=== PATIENT | female | born 1995 | race Caucasian/White ===

== ENCOUNTER 2018-02-04 11:03 | Emergency (ER) | payer MEDICAID, SELFPAY ==
[2018-02-04 11:04] VITALS: BP 141/93; PULSE 78; RESP 16; TEMP 36.5; O2SAT 97; BMI 32.5
--- NOTE | 2018-02-04 11:51 | ED.DCSUM_ITS ---
- ER Visit Summary Date of Service: 02/04/18 Chief Complaint: Continued facial pain and swelling on the left side History of Present Illness: The patient is a 22 F status post extraction of her upper left molars presents with swelling over the left maxillary sinus. She denies any URI symptoms. She denies nasal congestion, rhinorrhea or postnasal drainage. She denies any double vision, blurred vision loss of vision. Denies eye pain. She denies pain with movement of her eye. She denies fever, chills night sweats. She denies photophobia, neck pain or neck stiffness. There is no history of trauma. She apparently is unable to see her PCP or dentist. She was placed on cephalexin. Physical Examination: There is swelling over the left maxillary region. There is no evidence of facial cellulitis. There is a small pocket near the buccal gum junction in the proximity of where the second/third left upper molar would have been. There is no inflammation of the gingiva. There is no angioedema. There is no trismus. Trachea is midline. There is no stridor. Heart is regular without murmur, gallop or rub. S1 and S2 are normal. Lungs are clear to auscultation with good movement of air bilaterally. Test Results: Patient needs outpatient dental films, which are not available at [facility]. Emergency Department Course and Treatment: Patient's prescription was changed from cephalexin to clindamycin for anaerobic coverage. Treatment Plan: Discontinue cephalexin start clindamycin and follow-up with dentist Disposition: Discharged home Impression: facial pain and swelling suspect secondary to dental infection This note was generated with Gnammo dictation software. It may contain incorrect words, spelling, and punctuation that were not noted in review of the chart prior to signing ED Disposition - Plan for ED Patient: Chief Complaint: Other, Pain/Inj Instructions: ED Abscess Dental Prescriptions: Clindamycin HCl [Cleocin] 300 mg PO Q6H #28 cap Referrals: Richard Banuelos MD [Primary Care Provider] - Additional Instructions: You need to follow-up with your dentist. Your prescription was electronically sent to [facility] pharmacy your preferred pharmacy.
== END 2018-02-04 11:57 | disposition home or self-care (01) ==
LOC: ED 11:47
PROVIDERS: Emergency Provider Emergency Medicine; Family Provider Internal Medicine; PCP Internal Medicine
DX: R51 Headache (principal); R22.0 Localized swelling, mass and lump, head; Z98.818 Other dental procedure status; Z72.0 Tobacco use
CPT/HCPCS: 99282

== ENCOUNTER 2018-04-23 13:30 | Emergency (ER) | payer MEDICAID, SELFPAY ==
[2018-04-23 13:31] VITALS: BP 139/86; PULSE 89; RESP 18; TEMP 36.6; O2SAT 98; BMI 32.9
[2018-04-23] MEDS: DiphenhydrAMINE 50 MG/ML Syringe 25 MG IV (14:40)
[2018-04-23] MEDS: Ketorolac 30 MG/ML Syringe IV (14:40)
[2018-04-23] MEDS: Metoclopramide 10 MG/2 ML Vial IV (14:40)
[2018-04-23 15:16] LABS: Pregnancy, Serum, hCG Quali. NEGATIVE Negative (0-9 Nonpreg)
[2018-04-23 15:33] VITALS: RESP 14
--- NOTE | 2018-04-23 15:44 | ED.DCSUM_ITS ---
- ER Visit Summary Date of Service: 04/23/18 Chief Complaint: Bilateral headache, nausea, photophobia, fatigue and low back pain History of Present Illness: The patient is a 23 F who presents with bifrontal headache for the past couple of days. There is associated with photophobia and nausea. She also when generalized fatigue. Her last menses was not normal. She did miss 1 of her control pills and has varied the time of administration because she has been on vacation. She denies being bit by any insects or mosquitoes etc. She denies rash. She denies fever or chills. She denies double vision, blurred vision loss of vision. Denies trouble with her hearing. She denies rhinorrhea, congestion, postnasal drainage or sore throat. She denies chest pain or palpitations. She denies cough shortness of breath or difficulty breathing. She does report nausea without vomiting or diarrhea. She denies any myalgias arthralgias. Past medical history is unremarkable Physical Examination: Blood pressure slightly elevated 139/86. There is no frontal, ethmoid or maxillary sinus tenderness to percussion. Pupils equal round reactive paradoxic muscle intact. Funduscopic exam was no papilledema. TMs normal. Nares patent with no discharge. Posterior pharynx without erythema or exudate. Uvula is midline. Neck is supple. Heart is regular without murmur, gallop or rub. S1 and S2 are normal. Lungs are clear to auscultation with good movement of air bilaterally. Abdomen is soft nontender. Patient is alert and oriented ?3. Motor is 5 over 5. Sensory is intact. DTRs are symmetric with no clonus or Babinski sign. Cranial 2 through 12 are intact. Cerebellar testing is normal. Test Results: Serum test negative Emergency Department Course and Treatment: Patient was treated with 25 mg of Benadryl, 30 mm Toradol and 10 mg of Reglan. She was reassessed at 1532. She was asleep. She was awakened. Her headache is resolved. He was informed of her test results. Treatment Plan: Appropriate home-going instructions Disposition: Discharged home Impression: 1. Bifrontal headache suspect vascular 2. Abnormal menses 3. Generalized fatigue This note was generated with [employer] software. It may contain incorrect words, spelling, and punctuation that were not noted in review of the chart prior to signing ED Disposition - Plan for ED Patient: Disposition: Home or Assisted Living Chief Complaint: General Illness Instructions: ED Cephalgia Unspecified, ED Weakness UKO Referrals: Richard Banuelos MD [Primary Care Provider] - As Needed
[2018-04-23 16:06] VITALS: BP 114/61; PULSE 75; RESP 12; O2SAT 95
== END 2018-04-23 16:07 | disposition home or self-care (01) ==
PROVIDERS: Emergency Provider Emergency Medicine; Family Provider Internal Medicine; PCP Internal Medicine
DX: R51 Headache (principal); N93.9 Abnormal uterine and vaginal bleeding, unspecified; R53.83 Other fatigue; H53.149 Visual discomfort, unspecified; R11.0 Nausea; M54.5 Low back pain; E66.9 Obesity, unspecified; Z79.3 Long term (current) use of hormonal contraceptives
CPT/HCPCS: 84703; 96374; 96375; 99283; J7030

== ENCOUNTER 2019-01-15 19:45 | Emergency (ER) | payer MEDICAID, SELFPAY ==
[2019-01-15 19:46] VITALS: BP 129/70; PULSE 74; RESP 16; TEMP 36.2; O2SAT 96; BMI 35.2
[2019-01-15 21:06] LABS: Mucous, Urine 0 SEEN /hpf (<or=2+); Red Blood Cells-Urine 0 SEEN /hpf (0-5); White Blood Cells 0 SEEN /hpf (0-5)
[2019-01-15 21:10] LABS: Color, Urine Yellow (Yellow); Glucose, Dipstick Normal (Normal); Ketone-Dipstick Negative (Negative); Leukocyte Esterase-Dipstick 25 /ul (Negative); Nitrite-Dipstick Negative (Negative); Occult Blood-Urine Negative /ul (Negative); Protein-Dipstick Negative (Negative); Specific Gravity, Urine 1.015 (1.002-1.030); Urine Bilirubin Dipstick Negative (Negative); Urine Clarity Sl. Cloudy (Clear); Urine Urobilinogen Normal (Normal)
[2019-01-15 21:22] LABS: Amorphous Sediment 2+; Bacteria 1+ /hpf (None Seen); Squamous Epithelial Cells - UA 0-5 SEEN /hpf (5-10)
--- NOTE | 2019-01-15 21:22 | ED.VISSUMM ---
- ER Visit Summary Date of Service: 01/15/19 Chief Complaint: Back pain dysuria History of Present Illness: The patient is a 23 F presents with back pain and some dysuria for 2-3 days. No fever or chills no nausea or vomiting she is at 21 weeks. She feels movement and that has not changed. She has no vaginal discharge. No vaginal bleeding. Physical Examination: She appears well in no significant distress, she is got clear lungs bilaterally abdomen is soft gravid without any tenderness. She has some lumbar pain, no significant CVA tenderness. She appears well nontoxic and otherwise normal exam. Emergency Department Course and Treatment: Patient is found to have a urinary tract infection and I will treat her appropriately urine was cultured. Discharge stable condition Impression: [Urinary tract infection] This note was generated with Inf[employer]ami dictation software. It may contain incorrect words, spelling, and punctuation that were not noted in review of the chart prior to signing ED Disposition - Plan for ED Patient: Disposition: Home or Assisted Living Instructions: ED UTI Cystitis Female Prescriptions: Cephalexin [Keflex] 500 mg PO 4X/DAY #40 cap Referrals: Richard Banuelos MD [Primary Care Provider] - 3-5 Days
--- NOTE | 2019-01-15 21:25 | ED.DCSUM_ITS ---
- ER Visit Summary Date of Service: 01/15/19 Chief Complaint: Back pain dysuria History of Present Illness: The patient is a 23 F presents with back pain and some dysuria for 2-3 days. No fever or chills no nausea or vomiting she is at 21 weeks. She feels movement and that has not changed. She has no vaginal discharge. No vaginal bleeding. Physical Examination: She appears well in no significant distress, she is got clear lungs bilaterally abdomen is soft gravid without any tenderness. She has some lumbar pain, no significant CVA tenderness. She appears well nontoxic and otherwise normal exam. Emergency Department Course and Treatment: Patient is found to have a urinary tract infection and I will treat her appropriately urine was cultured. Discharge stable condition Impression: [Urinary tract infection] This note was generated with [employer] dictation software. It may contain incorrect words, spelling, and punctuation that were not noted in review of the chart p rior to signing ED Disposition - Plan for ED Patient: Disposition: Home or Assisted Living Instructions: ED UTI Cystitis Female Prescriptions: Cephalexin [Keflex] 500 mg PO 4X/DAY #40 cap Referrals: Richard Banuelos MD [Primary Care Provider] - 3-5 Days
[2019-01-15] MEDS: Cephalexin 250 MG Capsule 500 MG PO (21:30)
[2019-01-15 21:31] VITALS: BP 128/79; PULSE 83; RESP 16; O2SAT 99
== END 2019-01-15 21:31 | disposition home or self-care (01) ==
PROVIDERS: Emergency Provider Emergency Medicine; Family Provider Internal Medicine; PCP Internal Medicine
DX: O23.42 Unspecified infection of urinary tract in pregnancy, second trimester (principal); Z3A.21 21 weeks gestation of pregnancy
CPT/HCPCS: 81001; 87086; 87088; 99283

== ENCOUNTER → 2019-02-17 | Outpatient (CLI) | payer MEDICAID, SELFPAY ==
[2019-02-11 14:40] VITALS: BMI 34.7
[2019-02-17 11:42] LABS: Hematocrit 36.5 % (37-47); Hemoglobin 12.4 g/dl (12.0-15.0); Mean Corpuscular Hgb 29.4 pg (27.0-32.0); Mean Corpuscular Volume 86.5 fL (81-99); Mean Platelet Vol. 11.5 fl (6.2-12.0); Platelet Count 201 K/mm3 (150-450); RBC Distribution Width CV 12.8 % (11.6-14.6); RBC Distribution Width SD 39.1 fl (35.1-43.9); Red Blood Count 4.22 M/mm3 (4.2-5.4); White Blood Count 12.8 K/mm3 (4.4-11.0)
[2019-02-17 11:46] LABS: Scan Indicated on CBC? Y/N NO
[2019-02-17 11:54] LABS: Glucose Challenge Gest 1H 50g 142 mg/dL (70-140)
== END | disposition home or self-care (01) ==
LOC: LAB 09:47
PROVIDERS: Family Provider Internal Medicine; PCP Internal Medicine; Referring Provider Obstetrics & Gynecology Maternal & Fetal Medicine; Visit Provider Obstetrics & Gynecology Maternal & Fetal Medicine
DX: O09.892 Supervision of other high risk pregnancies, second trimester (principal); Z87.440 Personal history of urinary (tract) infections; Z3A.00 Weeks of gestation of pregnancy not specified
CPT/HCPCS: 36415; 82950; 85027; 87086; 87088

== ENCOUNTER → 2019-02-19 | Outpatient (CLI) | payer MEDICAID, SELFPAY ==
[2019-02-11 14:40] VITALS: BMI 34.7
[2019-02-19 07:57] LABS: Glucose GTT-Gestation. Fasting 89 mg/dL (<105)
[2019-02-19 08:40] LABS: Glucose GTT-Gestational 1 Hr 164 mg/dL (<190)
[2019-02-19 10:08] LABS: Glucose GTT-Gestational 2 Hr 106 mg/dL (<165)
[2019-02-19 11:14] LABS: Glucose GTT-Gestational 3 Hr 58 L (<145)
== END | disposition home or self-care (01) ==
LOC: LAB 06:55
PROVIDERS: Family Provider Internal Medicine; PCP Internal Medicine; Referring Provider Obstetrics & Gynecology Maternal & Fetal Medicine; Visit Provider Obstetrics & Gynecology Maternal & Fetal Medicine
DX: O99.810 Abnormal glucose complicating pregnancy (principal); Z3A.00 Weeks of gestation of pregnancy not specified
CPT/HCPCS: 36415; 82951; 82952

== ENCOUNTER → 2019-04-26 | Outpatient (CLI) | payer MEDICAID, SELFPAY ==
[2019-02-11 14:40] VITALS: BMI 34.7
== END | disposition home or self-care (01) ==
LOC: LABSPEC 12:41
PROVIDERS: Family Provider Internal Medicine; PCP Internal Medicine; Referring Provider Medical Genetics Clinical Genetics (M.D.); Visit Provider Medical Genetics Clinical Genetics (M.D.)
DX: Z36.0 Encounter for antenatal screening for chromosomal anomalies (principal)
CPT/HCPCS: 87081

== ENCOUNTER 2019-05-17 14:52 | Outpatient (CLI) | payer MEDICAID, SELFPAY ==
[2019-02-11 14:40] VITALS: BMI 34.7
[2019-05-17 15:02] VITALS: BMI 36.8
--- NOTE | 2019-05-17 18:00 | OB.TRI.HP_ITS ---
- Problem List (1) 38 weeks gestation of Status: Acute History of Present Illness Date of Service: 05/17/19 Was patient seen by the physician?: No Reason For Visit: DFM Final ITZEL: 05/26/19 Final ITZEL Source: LMP Gestational age: 38 weeks 5 days History of Present Illness: 24 yo at 38 5/7wga with c/o decreased movement. Thu is followed by MFM at [facility] with plans to deliver in [place]. Allergies shellfish derived Allergy (Verified 01/15/19 19:48) Anaphylaxis - Pertinent Past Medical History Medical History: Past Medical History (Last Reviewed 03/09/19 @ 15:06 by Debora Morris) Environmental allergies and not yet delivered NST - FHR Rate Baby A Baseline: 130 Variability:: Moderate Accelerations:: 15 x 15 Decelerations:: None NST Reactive:: Yes FHR Category:: Category I Uterine Activity:: 0/10 Impression/Plan 24yo G1 @ 38 5/7wga with reactive NST, Cat I FHR -No persistent of decreased FM -d/c home
== END 2019-05-17 15:48 | disposition home or self-care (01) ==
LOC: WPOUT 14:54 → WP 14:54
PROVIDERS: Family Provider Internal Medicine; PCP Internal Medicine; Referring Provider Obstetrics & Gynecology; Visit Provider Obstetrics & Gynecology
DX: O36.8130 Decreased fetal movements, third trimester, not applicable or unspecified (principal); Z3A.38 38 weeks gestation of pregnancy
CPT/HCPCS: 59025; 59050; 99218; G0378

== ENCOUNTER 2020-11-21 21:52 | Outpatient (CLI) | payer MEDICAID, SELFPAY ==
[2020-11-21 22:03] VITALS: PULSE 91; TEMP 36.9; O2SAT 97
[2020-11-21 22:05] VITALS: BP 127/85; PULSE 86
[2020-11-21 22:20] VITALS: BMI 31.9
--- NOTE | 2020-11-23 08:39 | OB.TRI.NOTE ---
History of Present Illness Date of Service: 11/22/20 Was patient seen by the physician?: No Reason For Visit: FALL Date of Service: 11/22/20 Final ITZEL: 11/30/20 Final ITZEL Source: LMP Gestational age: 39 Weeks and 0 Days Allergies shellfish derived Allergy (Verified 11/21/20 23:00) Anaphylaxis - Pertinent Past Medical History Medical History: Past Medical History (Last Reviewed 11/22/20 @ 09:38 by Madai Soria) Environmental allergies and not yet delivered Physical Exam Vitals: Vital Signs Temp Pulse BP Pulse Ox 98.4 F 86 127/85 H 97 11/21/20 22:03 11/21/20 22:05 11/21/20 22:05 11/21/20 22:03 NST - FHR Rate Baby A Baseline: 130 Variability:: Moderate Accelerations:: 15 x 15 Decelerations:: None NST Reactive:: Yes FHR Category:: Category I Uterine Activity:: irritability Impression/Plan 5-year-old 3 para 2 at 34-5/7 weeks gestation s/p fall at home via trip. No abdominal trauma noted on exam per nursing staff. Patient denied any vaginal bleeding or leaking of fluid. O+ blood type. Was observed for 4 hours of monitoring and discharged home to follow-up in the office as needed or as scheduled.
== END 2020-11-22 01:40 | disposition home or self-care (01) ==
LOC: WPOUT 22:00 → OBT 22:01
PROVIDERS: PCP Internal Medicine; Visit Provider Obstetrics & Gynecology
DX: O26.893 Other specified pregnancy related conditions, third trimester (principal); W19.XXXA Unspecified fall, initial encounter; Y93.9 Activity, unspecified; Y92.009 Unspecified place in unspecified non-institutional (private) residence as the place of occurrence of the external cause; Y99.9 Unspecified external cause status; Z3A.34 34 weeks gestation of pregnancy
CPT/HCPCS: 59025; 59050; 99218; G0378

== ENCOUNTER → 2020-12-18 13:51 | Outpatient (CLI) | payer MEDICAID, SELFPAY ==
[2020-12-01 08:27] VITALS: BMI 36.8
== END ==
PROVIDERS: PCP Internal Medicine; Visit Provider Obstetrics & Gynecology
DX: Z03.818 Encounter for observation for suspected exposure to other biological agents ruled out (principal)
CPT/HCPCS: 87635; C9803; U0002

== ENCOUNTER 2020-12-23 07:12 | Inpatient (IN) | payer MEDICAID, SELFPAY ==
[2020-12-01 08:27] VITALS: BMI 36.8
[2020-12-23] VITALS (53 sets, daily range): BP systolic 113–166; BP diastolic 54–89; PULSE 65–156; RESP 16; TEMP 36.2–37.4; O2SAT 83–100; BMI 33.6
[2020-12-23] MEDS: Lactated Ringers 1,000 ML 50 ML IV (07:35)
[2020-12-23 08:08] LABS: Absolute Lymphocyte Count 2.35 X10^3/uL (0.83-4.51); Absolute Neutrophil Count 11.2 X10^3/uL (2.0-7.7); Basophil# 0.08 X10^3/uL; Basophil% 0.5 % (0-1); Eosinophils% 0.7 % (0-5); Hematocrit 38.3 % (37-47); Hemoglobin 12.7 g/dL (12.0-15.0); Lymphocyte # 2.35 X10^3/ul (4.0); Lymphocyte % 15.7 % (19-41); Mean Corp Hgb Conc 33.2 g/dL (32-36); Mean Corpuscular Hgb 28.5 pg (27.0-32.0); Mean Corpuscular Volume 86.1 fL (81-99); Monocyte# 0.86 X10^3/uL; Monocyte% 5.8 % (0-10); NRBC Flagged by Analyzer 0 % (0-5); Neutrophil # 11.24 X10^3/uL (2.7-7.7); Neutrophil % 75.2 % (47-70); Platelet Count 227 K/mm3 (150-450); RBC Distribution Width CV 13.2 % (11.6-14.6); RBC Distribution Width SD 40.9 fl (35.1-43.9); Red Blood Count 4.45 M/mm3 (4.2-5.4); White Blood Count 14.9 K/mm3 (4.4-11.0)
[2020-12-23] MEDS: Oxytocin 30 units/NS 500 ml 30 UNITS/500 ML IV.SOLN IV (08:09)
--- NOTE | 2020-12-23 09:44 | PCM.HP.OB ---
- Problem List (1) 39 weeks gestation of Status: Acute (2) Elective induction of labor planned Status: Acute History Date of Admission: 12/23/20 Final ITZEL: 12/28/20 Final ITZEL Source: LMP Gestational age: 39 Weeks and 2 Days History of this : This is a 25 year-old, G [3], P [2002], at 39.2 weeks gestational age for an elective induction. Patient denies any loss of fluid, vaginal bleeding or cramping. Positive movement. has been uncomplicated. Patient has a history of major depression, short intervals between pregnancies and previous son was born with lateral meningocele syndrome. Medical History: Medical History (Last Reviewed 12/13/20 @ 08:41 by Madai Soria) Environmental allergies Z91.09 and not yet delivered Z34.90 Allergies shellfish derived Allergy (Verified 11/21/20 23:00) Anaphylaxis Home Medications: Home Medications prenat.vits,chavo,[id number] 1 tab PO DAILY 02/11/19 Smoking Status: Former smoker Alcohol: None Number of Fetus(es): 1 NST - FHR Rate Baby A Baseline: 135 Variability:: Moderate Accelerations:: 15 x 15 Decelerations:: None NST Reactive:: Yes FHR Category:: Category I Uterine Activity:: Irregular contractions History Past Pregnancies: Past Pregnancies Delivery Date Name GA/ Weeks Outcome Route Wt Infant Sex Labor Length Anesthesia Delivery Location Provider FOB Labs: O+ Rubella - immune HB- neg HC- neg HIV- NR RPR- NR GC/CH- negative GBS negative Expected Delivery Method: Spontaneous Vaginal Review of Systems Constitutional: Denies: Chills, Fever, Weight Change HEENT: Denies: Head Aches, Sinus Congestion, Sinus Drainage Cardiovascular: Denies: Chest Pain, Palpitations Respiratory: Denies: Cough, Shortness of breath at rest, Sputum production Gastrointestinal: Denies: Abdominal Pain, Nausea, Vomiting Genitourinary: Denies: Dysuria Musculoskeletal: Denies: Joint Pain, Joint Tenderness Skin: Denies: Rash, Wounds Neurological: Denies: Numbness, Tingling, Focal weakness Psychiatric: Denies: Anxiety, Depression, Homicidal Ideations, Suicidal Ideations Physical Exam Vitals: Vital Signs Temp Pulse BP Pulse Ox 98.4 F 81 119/75 98 12/23/20 09:26 12/23/20 09:26 12/23/20 09:26 12/23/20 09:26 General: Alert, Oriented x3 HEENT: Atraumatic Cardiovascular: Regular rate Lungs: Normal air movement Abdomen: Soft, Non Tender, Gravid Neurological: Cranial nerves II-XII grossly intact Cervix Dilation (cm): 4 Station: -3 Effacement (%): 60 Assessment/Plan All Active Problems (Last Reviewed 12/13/20 @ 08:41 by Madai Soria) 38 weeks gestation of (Acute) 39 weeks gestation of (Acute) Elective induction of labor planned (Acute) Segmental and somatic dysfunction of sacral region (Acute) Segmental and somatic dysfunction of thoracic region (Acute) Segmental and somatic dysfunction of lumbar region (Acute) This is a 25 year-old, G [3], P [2], at 39.2 weeks gestational age for elective induction of labor Admit to labor and delivery Routine labs IV fluids per policy Cat. 1 tracing NST reactive Start pitocin and titrate per policy Anticipate Dr. De Luna notified and is collaborating physician
[2020-12-23] MEDS: Lactated Ringers 500 ML 999 ML IV (12:30)
[2020-12-23] MEDS: fentaNYL-bupivacaine (epidural) 100 ML BAG EPIDURAL (13:40)
--- NOTE | 2020-12-23 14:40 | PN.OBGYN_ITS ---
Patient Problems: Active and Suspected Problems (Last Reviewed 12/13/20 @ 08:41 by Madai Soria) 39 weeks gestation of (Acute) Elective induction of labor planned (Acute) Subjective: Patient seen at bedside. Resting comfortably with epidural. Denies any pain. - Physical Exam Vitals/I&O's: Vital Signs Temp Pulse BP Pulse Ox 98.1 F 72 133/85 H 99 12/23/20 14:02 12/23/20 14:35 12/23/20 14:33 12/23/20 14:35 Weight: 190 lb Body Mass Index (BMI) 33.6 Intake and Output for Last 24 Hours 12/21/20 12/22/20 12/23/20 23:59 23:59 23:59 Intake Total 783.40 / 783.40 Balance 783.40 / 783.40 General: Alert, Oriented x3 HEENT: Atraumatic Lungs: Normal air movement Cardiovascular: Regular rate Abdomen: Soft, Non Tender, Gravid Skin: No rashes Neurological: Cranial nerves II-XII grossly intact Psych/Mental Status: Normal Affect, Appropriate Laboratory Results 12/23/20 07:35: WBC 14.9 H, RBC 4.45, Hgb 12.7, Hct 38.3, MCV 86.1, MCH 28.5, MCHC 33.2, RDW Std Deviation 40.9, RDW Coeff of Mariella 13.2, Plt Count 227, MPV 12.0, Immature Gran % (Auto) 2.100 H, Neut % (Auto) 75.2 H, Lymph % (Auto) 15.7 L, [place] % (Auto) 5.8, Eos % (Auto) 0.7, Baso % (Auto) 0.5, Absolute Neuts (auto) 11.2 H, Absolute Lymphs (auto) 2.35, Nucleated RBC % 0 12/23/20 07:35: Blood Type O POSITIVE, Antibody Screen NEGATIVE Current Medications Acetaminophen (Acetaminophen 500 Mg Tablet) 500 - 1,000 mg PO Q6H PRN PRN PRN Reason: Pain Score 1-3 Al Hydroxide/Mg Hydroxide (Mag Hydrox/Al Hydrox/Simeth 30 Ml Udc) 15 - 30 ml PO Q4H PRN PRN PRN Reason: INDIGESTION Citric Acid/Sodium Citrate (Sodium Citrate/Citric Acid 30 Ml Udc) 30 ml PO X1 PRN PRN Reason: Section Ephedrine Sulfate (Ephedrine Sulfate 50 Mg/Ml Ampul) 10 mg IV Q10M PRN PRN Reason: hypotension Ephedrine Sulfate (Ephedrine Sulfate 50 Mg/Ml Ampul) 10 mg IM Q30M PRN PRN Reason: hypotension Fentanyl Citrate (Fentanyl 100 Mcg/2 Ml Ampul) 25 - 50 mcg IV Q2H PRN PRN PRN Reason: Pain Score 4-10 Fentanyl/Bupivacaine/Sodium Chlor (Fentanyl-Bupivacaine (Epidural) 100 Ml Bag) 0 ml EPIDURAL UD [facility]; Protocol Last Admin: 12/23/20 13:40 Dose: 100 ml Documented by: Lactated Ringer's () 500 mls @ 999 mls/hr IV .Q31M PRN PRN Reason: Epidural Last Infusion: 12/23/20 13:05 Dose: Infused Documented by: Lactated Ringer's () 500 mls @ 999 mls/hr IV .Q31M PRN PRN Reason: Corrective Measures Lactated Ringer's () 1,000 mls @ 50 mls/hr IV .Q20H [facility] Last Infusion: 12/23/20 13:05 Dose: 200 mls/hr Documented by: Oxytocin/Sodium Chloride () 30 units in 500 mls @ 2 mls/hr IV .Q250H [facility] Last Infusion: 12/23/20 13:10 Dose: 4 mls/hr Documented by: Nalbuphine HCl (Nalbuphine 10 Mg/Ml Ampul) 5 mg IV Q3H PRN PRN PRN Reason: ITCHING Naloxone HCl (Naloxone 0.4 Mg/Ml Syringe) 0.02 mg IV Q1M PRN PRN Reason: RR <10 and pt unresponsive Ondansetron HCl (Ondansetron 4 Mg/2 Ml Vial) 4 mg IV Q4H PRN PRN PRN Reason: NAUSEA Prochlorperazine Edisylate (Prochlorperazine 10 Mg/2 Ml Vial) 10 mg IV Q6H PRN PRN PRN Reason: NAUSEA Sodium Chloride (0.9% Saline Lock 10 Ml Syringe) 10 - 40 ml IV X1 PRN PRN Reason: SALINE FLUSH Medical Necessity - Tobacco Use Smoking Status: Former smoker Assessment/Plan All Active Problems (Last Reviewed 12/13/20 @ 08:41 by Madai Soria) 38 weeks gestation of (Acute) 39 weeks gestation of (Acute) Elective induction of labor planned (Acute) Segmental and somatic dysfunction of sacral region (Acute) Segmental and somatic dysfunction of thoracic region (Acute) Segmental and somatic dysfunction of lumbar region (Acute) at 39.2 weeks gestation for elective induction of labor. Cat. 1 tracing NST reactive TOCO reading contractions every 1-3 minutes Pitiocin at 4 mu/min AROM for moderate amount of clear fluid 6-7//-1 Anticipate
[2020-12-23] MEDS: Ondansetron 4 MG/2 ML Vial IV (16:10)
[2020-12-23] MEDS: Lactated Ringers 1,000 ML 200 ML IV (17:31)
--- NOTE | 2020-12-23 17:40 | PCM.OPRPT ---
Problem List (1) 39 weeks gestation of Status: Acute (2) Elective induction of labor planned Status: Acute (3) (spontaneous vaginal delivery) Status: Acute Report of Operation Date of Procedure: 12/23/20 Pre-Operative Diagnosis: Term gestation, elective induction of labor Post-Operative Diagnosis: Same, viable male Vaginal Delivery Maternal Presentation: Elective Induction Patient is a at 39.2 weeks gestation that was a scheduled elective induction of labor. Method of Induction: Amniotomy, Cytotec Amniotic Membrane Rupture Type: Artificial Rupture of Membrane time: 823 Amniotic Fluid Description: Clear Final ITZEL: 12/28/20 Gestational age: 39 Weeks and 2 Days Date of Procedure: 12/23/20 Pre-Operative Diagnosis: Term gestation, Spontaneous rupture of membranes Post-Operative Diagnosis: Same, live male infant Surgery/ Procedure Performed: Spontaneous Vaginal Delivery Type of Anesthesia: Epidural Description of Procedure: Patient progressed to complete dilation and 1+ station. Pushed well with contractions and position changes. Infant head delivered over intact perineum followed by anterior shoulder. Remainder of infant delivered spontaneously. Vigorous male infant placed on maternal abdomen and attended to by nursing staff. 3 vessel cord was clamped and cut by FOB after 2 minute delay. IV pitocin started for active management of the third stage of labor. Placenta delivered spontaneously and intact. After inspection, it was noted vagina and perineum intact. EBL 300cc. APGARS 8/9. skin to skin with patient. Dr. De Luna updated on delivery. Presentation: Vertex, CARMELA Placental Delivery Description: Spontaneous Placenta Disposition: [facility] Cord Vessel Description: 3 Vessels Cord Entanglement: None Estimated Blood Loss: 300 Infant A gender: Male - RITCHIE (1 minute): 8 (5 minute): 9 Episiotomy Description: None Laceration: None Medications given after delivery: IV Pitocin Complications: None
[2020-12-23] MEDS: Oxytocin 30 units/NS 500 ml 30 UNITS/500 ML IV.SOLN 334 UNITS IV (19:10)
[2020-12-23] MEDS: Ibuprofen 600 MG Tablet PO (20:20)
--- NOTE | 2020-12-23 21:44 | NURSING ---
Report given to Debbie JOVEL, taking over pt and care at this time.
[2020-12-23] MEDS: Acetaminophen 500 MG Tablet 1000 MG PO (22:54)
[2020-12-24] MEDS: Ibuprofen 600 MG Tablet PO ×3 (02:48→15:49)
[2020-12-24] MEDS: Senna/Docusate Sodium 1 Tablet PO (02:48)
[2020-12-24 04:30] VITALS: BP 108/49; PULSE 70; RESP 16; TEMP 36.9
[2020-12-24 09:43] VITALS: BP 98/58; PULSE 65; RESP 14; TEMP 36.7
--- NOTE | 2020-12-24 11:12 | PCM.PN.OB ---
Patient Problems: Active and Suspected Problems (Last Reviewed 12/13/20 @ 08:41 by Madai Soria) 39 weeks gestation of (Acute) Elective induction of labor planned (Acute) (spontaneous vaginal delivery) (Acute) Subjective: Patient resting comfortably. Having some discomfort with cramps. Taking Motrin. Bottle feeding . Bleeding has decreased. Ambulating and voiding without difficulty. Ice to perineum for swelling. Desires discharge home today. - Physical Exam Vitals/I&O's: Vital Signs Temp Pulse Resp BP Pulse Ox 98.0 F 65 14 98/58 L 100 12/24/20 09:43 12/24/20 09:43 12/24/20 09:43 12/24/20 09:43 12/23/20 21:25 Oxygen Delivery Method Room Air Weight: 190 lb Body Mass Index (BMI) 33.6 Intake and Output for Last 24 Hours 12/22/20 12/23/20 12/24/20 23:59 23:59 23:59 Intake Total 2881.37 / 2881.37 Output Total 1400 / 1400 700 / 700 Balance 1481.37 / 1481.37 -700 / -700 General: Alert, Oriented x3, Cooperative HEENT: Atraumatic Oral: Moist Mucosa Lungs: Normal air movement Cardiovascular: Regular rate Abdomen: Soft, Non Tender Extremities: Capillary Refill Less than 3 Seconds, No Calf Tenderness Skin: No rashes Neurological: Cranial nerves II-XII grossly intact Psych/Mental Status: Normal Affect, Appropriate Current Medications Acetaminophen (Acetaminophen 500 Mg Tablet) 1,000 mg PO Q8H PRN PRN PRN Reason: Pain Score 1-10 Last Admin: 12/23/20 22:54 Dose: 1,000 mg Documented by: Bisacodyl (Bisacodyl 10 Mg Suppository) 10 mg RC UD PRN PRN Reason: If no BM Dibucaine (Dibucaine 30 Gm Tube) 1 applic TOPICAL TID PRN PRN; Protocol PRN Reason: Discomfort Hydrocortisone (Hydrocortisone 2.5% Crm) 1 applic TOPICAL TID PRN PRN; Protocol PRN Reason: Discomfort Ibuprofen (Ibuprofen 600 Mg Tablet) 600 mg PO Q6H PRN PRN PRN Reason: Pain Score 1-10 Last Admin: 12/24/20 08:58 Dose: 600 mg Documented by: Methylergonovine Maleate (Methylergonovine 0.2 Mg/Ml Ampul) 0.2 mg IM X1 PRN PRN Reason: Excess bleeding/uterine atony Ondansetron HCl (Ondansetron 4 Mg/2 Ml Vial) 4 mg IV Q4H PRN PRN PRN Reason: Nausea Senna/Docusate Sodium (Senna/Docusate Sodium 1 Tablet) 1 - 2 tablet PO DAILY PRN PRN PRN Reason: Constipation Last Admin: 12/24/20 02:48 Dose: 2 tablet Documented by: Simethicone (Simethicone 80 Mg Tablet) 80 mg PO PCHS PRN PRN Reason: Indigestion/Stomach pain Sodium Chloride (0.9% Saline Lock 10 Ml Syringe) 5 - 15 ml IV UD PRN PRN Reason: SALINE FLUSH Medical Necessity - Tobacco Use Smoking Status: Former smoker Assessment/Plan All Active Problems (Last Reviewed 12/13/20 @ 08:41 by Madai Soria) 38 weeks gestation of (Acute) 39 weeks gestation of (Acute) Elective induction of labor planned (Acute) (spontaneous vaginal delivery) (Acute) Segmental and somatic dysfunction of sacral region (Acute) Segmental and somatic dysfunction of thoracic region (Acute) Segmental and somatic dysfunction of lumbar region (Acute) PPD #1 Routine care Bottle feeding Pain control Discharge home with follow up in office
--- NOTE | 2020-12-24 11:14 | DCINST_ITS ---
Discharge Diet: No Restrictions May resume sexual activity in: 6-8 weeks Additional Instructions: If you experience any of the following, contact your healthcare provider. * Bleeding that soaks a pad every hour for 2 hours * Fever 100.4 or higher * Unrelieved incision or abdominal pain * Swelling, redness, discharge or bleeding from your incision or episiotomy site * Your incision begins to separate * Problems urinating (including inability to urinate or burning while urinating). * Visual changes * Severe headache * Flu-like symptoms * Pain or redness in one of both of your breasts * Pain, warmth, tenderness or swelling in your legs, especially the calf area * Frequent nausea and vomiting * Symptoms of depression or anxiety If you experience any of the following, call 911 or go to the nearest Emergency Room. * Chest pain * Problems breathing * Seizure activity * Partial or complete paralysis of a body part, slurred speech, weakness or drooping of the face, or a sudden inability to walk or hold your balance Allergies/Adverse Reactions: Allergies shellfish derived Allergy (Verified 11/21/20 23:00) Anaphylaxis Medications to take at Discharge prenat.vits,chavo,[id number] 1 tab PO DAILY 02/11/19 Please Follow Up With: Shakira Mosher CNM When: 2 weeks virtual/ 6 weeks in office Primary Care Physician: Richard Banuelos MD [Primary Care Provider] - Test Results: Test results from this visit will be discussed in further detail at your follow- up appointment, if applicable. Proposed Discharge Date: 12/24/20
--- NOTE | 2020-12-24 11:14 | PCM.DCVAG ---
Discharge Diet: No Restrictions May resume sexual activity in: 6-8 weeks Additional Instructions: If you experience any of the following, contact your healthcare provider. Bleeding that soaks a pad every hour for 2 hours Fever 100.4 or higher Unrelieved incision or abdominal pain Swelling, redness, discharge or bleeding from your incision or episiotomy site Your incision begins to separate Problems urinating (including inability to urinate or burning while urinating). Visual changes Severe headache Flu-like symptoms Pain or redness in one of both of your breasts Pain, warmth, tenderness or swelling in your legs, especially the calf area Frequent nausea and vomiting Symptoms of depression or anxiety If you experience any of the following, call 911 or go to the nearest Emergency Room. Chest pain Problems breathing Seizure activity Partial or complete paralysis of a body part, slurred speech, weakness or drooping of the face, or a sudden inability to walk or hold your balance Allergies/Adverse Reactions: Allergies shellfish derived Allergy (Verified 11/21/20 23:00) Anaphylaxis Medications to take at Discharge prenat.vits,chavo,dce-vjuk-cuyje 1 tab PO DAILY 02/11/19 Please Follow Up With: Shakira Mosher CNM When: 2 weeks virtual/ 6 weeks in office Primary Care Physician: Richard Banuelos MD [Primary Care Provider] - Test Results: Test results from this visit will be discussed in further detail at your follow-up appointment, if applicable. Proposed Discharge Date: 12/24/20
[2020-12-24] MEDS: Acetaminophen 500 MG Tablet 1000 MG PO ×2 (12:10→20:15)
[2020-12-24 13:32] VITALS: BP 109/45; PULSE 72; RESP 12; TEMP 36.4
[2020-12-24 16:05] VITALS: BP 105/57; PULSE 68; RESP 12; TEMP 36.1
[2020-12-24 19:57] VITALS: BP 133/75; PULSE 76; RESP 16; TEMP 36.6
[2020-12-24] MEDS: Dibucaine 30 GM Tube 1 APPLIC TOPICAL (20:17)
[2020-12-24 23:00] VITALS: BP 133/75; PULSE 76; RESP 16; TEMP 36.6
== END 2020-12-24 23:15 | disposition home or self-care (01) | DRG 560 ==
PROVIDERS: Admitting Provider Advanced Practice Midwife; PCP Internal Medicine; Visit Provider Advanced Practice Midwife
DX: O80 Encounter for full-term uncomplicated delivery (principal); Z87.891 Personal history of nicotine dependence; Z3A.39 39 weeks gestation of pregnancy; Z37.0 Single live birth
CPT/HCPCS: 59025; 59050; 85025; 86850; 86900; 86901; 99218; J7120; G0378; J2405

== ENCOUNTER → 2024-12-03 | Outpatient (CLI) | payer OTHER, SELFPAY ==
[2024-12-10 12:08] LABS: Clam <0.10 kU/L (Class 0); Codfish <0.10 kU/L (Class 0); Corn <0.10 kU/L (Class 0); Crab <0.10 kU/L (Class 0); Egg, White <0.10 kU/L (Class 0); Lobster <0.10 kU/L (Class 0); Milk (Cow) 0.13 kU/L (Class 0/I); Peanut 0.16 kU/L (Class 0/I); SCALLOP <0.10 kU/L (Class 0); SESAME SEED <0.10 kU/L (Class 0); Salmon <0.10 kU/L (Class 0); Shrimp <0.10 kU/L (Class 0); Soybean <0.10 kU/L (Class 0); Walnut, (Food) <0.10 kU/L (Class 0); Wheat 0.21 kU/L (Class 0/I)
== END | disposition home or self-care (01) ==
PROVIDERS: PCP Family Medicine
DX: T78.40XA Allergy, unspecified, initial encounter (principal)
CPT/HCPCS: 36415; 86003

== ENCOUNTER → 2025-01-31 | Outpatient (CLI) | payer OTHER, SELFPAY | END | disposition home or self-care (01) | LOC: LAB 13:32 | PROVIDERS: PCP Family Medicine | DX: T78.40XA Allergy, unspecified, initial encounter (principal) | CPT/HCPCS: 86003 ==